=== PATIENT | female | born 1945 | race Caucasian/White ===

== ENCOUNTER 2018-12-08 18:05 | Inpatient (IN) | payer MEDICARE, OTHER ==
[~2018-12-08] VITALS: Ht 160 cm; Wt 63.6 kg
[2018-12-08] MEDS ORDERED: OMEPRAZOLE20 MG (18:19)
[2018-12-08] MEDS ORDERED: Prinivil10 MG PO (18:19)
[2018-12-08] MEDS ORDERED: LEVSOD100 PO (18:19)
[2018-12-08] MEDS ORDERED: SERT50 PO (18:19)
[2018-12-08] MEDS ORDERED: METO25ER PO (18:20)
[2018-12-08] MEDS ORDERED: ASPI81CH PO (18:20)
[2018-12-08] MEDS ORDERED: PROBIOTIC1 EAC1 PO (18:20)
[2018-12-08] MEDS ORDERED: METF500 PO (18:20)
[2018-12-08] MEDS ORDERED: MYNEPHRON CAPSUL1 MG PO (18:20)
[2018-12-08] MEDS ORDERED: PRED5 PO (18:20)
[2018-12-08] MEDS ORDERED: ATOR40TA PO (18:21)
[2018-12-08] MEDS ORDERED: MAGNESIUM OXID500 MG PO (18:21)
[2018-12-08] MEDS ORDERED: Vitamin D400 UNI1 PO (18:21)
[2018-12-08] MEDS ORDERED: Ventolin/Prove6.7 GM INH (18:22)
[2018-12-08] MEDS ORDERED: Brovana15 MCG/2 M (18:22)
[2018-12-08] MEDS ORDERED: Abreva2 GM (18:22)
[2018-12-08 19:15] LABS: Chloride (POC) 95 mmol/L (98-108); Creatinine (POC) 0.6 mg/dL (0.6-1.0); Glucose (ISTAT POC) 183 mg/dL (70-99); Hemoglobin (POC) 13.9 g/dL (12.0-16.0); Potassium (POC) 3.8 mmol/L (3.5-5.5); Sodium (POC) 134 mmol/L (135-148); Total CO2 (POC) 29 mmol/L (21-32)
[2018-12-08 20:24] LABS: BASOPHILS ABSOLUTE AUTO 0.13 K/mm3 (0.00-0.23); BASOPHILS PERCENT AUTO 1 % (0-2); EOSINOPHILS ABSOLUTE AUTO 0.13 K/mm3 (0.00-0.68); EOSINOPHILS PERCENT AUTO 1 % (0-6); Hematocrit 44.5 % (33.0-51.0); Hemoglobin 14.2 g/dL (11.5-16.0); IMMATURE GRAN ABSOLUTE AUTO 0.48 K/mm3 (0.00-0.10); IMMATURE GRAN PERCENT AUTO 2 % (0-1); LYMPHOCYTES ABSOLUTE AUTO 2.43 K/mm3 (0.84-5.20); LYMPHOCYTES PERCENT AUTO 11 % (21-46); MONOCYTES ABSOLUTE AUTO 1.49 K/mm3 (0.16-1.47); MONOCYTES PERCENT AUTO 7 % (4-13); Mean Corpuscular HGB 31.4 pg (26.0-34.0); Mean Corpuscular HGB Conc 31.9 g/dL (31.5-36.5); Mean Corpuscular Volume 99 fL (80-100); NEUTROPHILS ABSOLUTE AUTO 18.06 K/mm3 (1.96-9.15); NEUTROPHILS PERCENT AUTO 79 % (41-73); Platelet Count 390 K/mm3 (150-400); RDW Coefficient Variation 12.5 % (11.7-14.2); RDW Standard Deviation 45.6 fL (35.1-46.3); Red Blood Cell Count 4.52 M/mm3 (3.80-5.20); White Blood Cell Count 22.72 K/mm3 (4.00-11.30)
[2018-12-08 20:46] LABS: Alanine Aminotransfer (ALT/SGP 32 U/L (12-78); Albumin, Blood 3.6 g/dL (3.4-5.0); Alk Phos 105 U/L (50-136); Anion Gap 7 mmol/L (6-16); Aspartate Aminotrans (AST/SGOT 26 U/L (12-37); Bilirubin, Total 0.2 mg/dL (0.1-1.0); Blood Urea Nitrogen 11 mg/dL (8-24); Bun/Creatinine Ratio 23.7 (12.0-20.0); CO2, Blood 28 mmol/L (21-32); Calcium, Blood 8.6 mg/dL (8.5-10.1); Chloride, Blood 103 mmol/L (98-108); Creatinine, Blood 0.47 mg/dL (0.40-1.00); Globulin, Blood 3.5 g/dL (2.2-4.0); Glomerular Filtration Rate >60 (60-); Glucose, Blood 145 mg/dL (70-99); Potassium, Blood 4.3 mmol/L (3.5-5.5); Sodium, Blood 138 mmol/L (136-145); Total Protein, Blood 7.1 g/dL (6.4-8.2)
[2018-12-08] MEDS ORDERED: BUDE.25 NEB (21:23)
[2018-12-08] MEDS ORDERED: ROFL500T PO ×2 (21:24→23:04)
[2018-12-08 22:51] LABS: International Normalized Ratio 0.98; Prothrombin Time Results 10.4 Sec (9.7-11.5)
[2018-12-08] MEDS ORDERED: COMBIVENT RESPIM4 GM INH (23:02)
[2018-12-08] MEDS ORDERED: CITRATE OF MAG296 ML (23:03)
--- NOTE | 2018-12-09 01:00 | NUR ---
PT TO ICU 4 FROM ED. PT ALERT AND ORIENTED ARRIVING TO UNIT ON BIPAP (10/5 35%). PT DENIES CHEST PAIN OR DIFFICULTY BREATHING AT THIS TIME. EXPIRATORY WHEEZES HEARD BILATERAL UPPER LOBES, DIM BASES. PT NSR WITH HR IN THE 60'S-70'S. PT'S CURRENTLY RCVING LITER 2 OF 2 NS BOLUS D/T CONTINUED HYPOTENSION WITH MAP IN THE LOW 60'S. WILL CONTINUE TO MONITOR. HYPERACTIVE BT'S HEARD T/O, PT REPORTS STOMACH FEELS "UPSET" AND "A LITTLE TENDER" WITH PALPATION. NO C/O N/T, GOOD PULSES FELT BUE/BLE. COMPRESSION STOCKINGS APPLIED PER ORDER. GONZALEZ CATHETER INSERTED AND URINE SENT TO LAB PER PHYSICIAN ORDER. CHRIS POWERGLIDE INSERTED D/T CONTINUED "BLOWN" IV'S. SEE FULL ADMISSION HISTORY/ASSESSMENT.
[2018-12-09 01:10] LABS: Source, Urine Catheter
[2018-12-09 01:14] LABS: Appearance, Urine Cloudy (Clear); Bilirubin, Urine Neg (Neg); Blood, Urine 3+ (Neg); Color, Urine Yellow (P-Yellow); Glucose Qualitative, Urine Neg (Neg); Ketones, Urine 1+ (Neg); Leukocyte Esterase, Urine 2+ (Neg); Nitrite, Urine Pos (Neg); Protein, Urine 3+ (Neg); Specific Gravity, Urine 1.025 (1.003-1.022); Urobilinogen, Urine NORM (Normal)
[2018-12-09 01:20] LABS: Bacteria Many /hpf; Hyaline Casts 0-2 /lpf (0-2); Red Blood Cells, Urine 0-2 /hpf (0-2); Squamous Epithelial Cells Mod /hpf (Few)
[2018-12-09] MEDS ORDERED: PYRI100 PO (01:29)
[2018-12-09] MEDS ORDERED: BENZ100A PO (01:29)
[2018-12-09] MEDS ORDERED: CYCL10 PO (01:30)
[2018-12-09] MEDS ORDERED: FURO20 PO (01:31)
[2018-12-09] MEDS ORDERED: ONDA4ODT MM (01:34)
[2018-12-09] MEDS ORDERED: OMEP20ER PO (01:34)
--- NOTE | 2018-12-09 02:20 | NUR ---
CALL TO HOSPITALIST REGARDING PT'S CONTINUED HYPOTENSION, ORDER TO INFUSE ADDITIONAL 500 ML FLUID BOLUS.
[2018-12-09 04:05] LABS: BASOPHILS ABSOLUTE AUTO 0.05 K/mm3 (0.00-0.23); BASOPHILS PERCENT AUTO 0 % (0-2); EOSINOPHILS ABSOLUTE AUTO 0.03 K/mm3 (0.00-0.68); EOSINOPHILS PERCENT AUTO 0 % (0-6); Hematocrit 39.6 % (33.0-51.0); Hemoglobin 12.4 g/dL (11.5-16.0); IMMATURE GRAN ABSOLUTE AUTO 0.37 K/mm3 (0.00-0.10); IMMATURE GRAN PERCENT AUTO 2 % (0-1); LYMPHOCYTES PERCENT AUTO 6 % (21-46); MONOCYTES ABSOLUTE AUTO 0.72 K/mm3 (0.16-1.47); MONOCYTES PERCENT AUTO 4 % (4-13); Mean Corpuscular HGB 31.2 pg (26.0-34.0); Mean Corpuscular HGB Conc 31.3 g/dL (31.5-36.5); Mean Corpuscular Volume 100 fL (80-100); Mean Platelet Volume 10.2 fL (9.1-12.4); NEUTROPHILS ABSOLUTE AUTO 16.39 K/mm3 (1.96-9.15); NEUTROPHILS PERCENT AUTO 87 % (41-73); Platelet Count 281 K/mm3 (150-400); RDW Coefficient Variation 12.6 % (11.7-14.2); RDW Standard Deviation 46.5 fL (35.1-46.3); Red Blood Cell Count 3.97 M/mm3 (3.80-5.20); White Blood Cell Count 18.76 K/mm3 (4.00-11.30)
[2018-12-09 04:31] LABS: Alanine Aminotransfer (ALT/SGP 40 U/L (12-78); Albumin, Blood 3.1 g/dL (3.4-5.0); Alk Phos 72 U/L (50-136); Anion Gap 6 mmol/L (6-16); Aspartate Aminotrans (AST/SGOT 33 U/L (12-37); Bilirubin, Total 0.3 mg/dL (0.1-1.0); Blood Urea Nitrogen 10 mg/dL (8-24); Bun/Creatinine Ratio 16.9 (12.0-20.0); CHOL/HDL RATIO 1.9; CO2, Blood 28 mmol/L (21-32); CPK Creatine Kinase 149 U/L (26-193); Calcium, Blood 7.8 mg/dL (8.5-10.1); Chloride, Blood 103 mmol/L (98-108); Cholesterol 124 mg/dL (50-200); Creatinine, Blood 0.59 mg/dL (0.40-1.00); Globulin, Blood 3.1 g/dL (2.2-4.0); Glomerular Filtration Rate >60 (60-); Glucose, Blood 136 mg/dL (70-99); HDL Cholesterol 66 mg/dL (>39); LDL/HDL RATIO 0.7; Low Density Lipoprotein Chol 49 mg/dL (0-110); Potassium, Blood 4.6 mmol/L (3.5-5.5); Sodium, Blood 137 mmol/L (136-145); Total Protein, Blood 6.2 g/dL (6.4-8.2); Triglycerides 43 mg/dL (30-160); Very Low Density Lipoprot Chol 8 mg/dL (6-32)
[2018-12-09 05:25] LABS: PCO2 Arterial 52.2 mmHg (35-45); pH Blood Arterial 7.31 (7.35-7.45)
--- NOTE | 2018-12-09 05:47 | NUR ---
SHIFT SUMMARY NO ACUTE CHANGES SINCE ADMISSION. PT SLEEPING WELL, DENIES NEW/WORSENING PAIN OR NEEDS AT THIS TIME. PT RESPONDED TO FLUID BOLUS MOSTLY MAINTAINING MAP>65 WITH OCCASIONAL HYPOTENSION. BIPAP SETTINGS 10/5 FIO2 35% SATS>95. 600 ML CLEAR INEZ URINE OUT OF CATHETER. WILL REPORT TO DAYSHIFT NURSE.
--- NOTE | 2018-12-09 07:54 | NUR ---
echocardiogram completed.
--- NOTE | 2018-12-09 08:33 | NUR ---
ASSUMED CARE / HEART CENTER: REPORT RECEIVED FROM WESTON Gonzalez RN. ASSUMED CARE OF THIS PT AT APPROX 0700. ON ASSESSMENT, THE PT IS RESTING QUIETLY. MARKETING FINANCIAL ANALYST AT BEDSIDE COMPLETING STUDY. BIPAP IN PLACE, SETTINGS 10/5 & 30% FIO2. MONITOR SHOWS NSR W/ HR 60s. SLIGHT HYPOTENSION NOTED W/ SBP 90-100s. PT ASYMPTOMATIC. ECHO COMPLETED & DR CLINE TO READ. PLANS FOR ANGIOGRAM THIS AM. HEART CENTER STAFF AT BEDSIDE TO PREP PT. HEPARIN DRIP & MAINTENANCE IVF PLACED ON STANDBY, PHARMACY AWARE. PT TAKEN TO HC AT APPROX 0840. WILL AWAIT UPDATES & PT RETURN TO ROOM.
--- NOTE | 2018-12-09 11:04 | NUR ---
RETURN FROM HC: PT ARRIVED BACK TO ROOM AT APPROX 1100. ON ARRIVAL, SHE IS A&O, CONVERSING W/ NURSING STAFF. TR BAND TO R WRIST PLACED AT 1039 W/ 12 CC AIR, PER HC RN. SITE WNL ON ASSESSMENT, AREA FREE OF BLEEDING, BRUISING OR HEMATOMA FORMATION ON ASSESSMENT. SENSATION TO FINGERS ON AFFECTED LIMB INTACT, PT DENIES N/T. CAP REFILL < 3 SECONDS. O2 SATS > 92% ON 5L NC, WILL TITRATE DOWN TOLERATED. PT RECEIVED ONE STENT TO FIRST DIAG.
--- NOTE | 2018-12-09 12:19 | NUR ---
UPDATE: NOTIFIED BY ZOLTAN Frazier, PCT, THAT PT HAS BEGUN TO FEEL NAUSEOUS, FLUSHED & SOB SHORTLY AFTER ATTEMPTING TO EAT SOME TOAST & DRINK DECAF COFFEE. NOAH Stubbs, EXTENSION SPECIALIST, RESPONDS TO BEDSIDE THIS RN WAS UNAVAILABLE. MEDS PER EMAR FOR NAUSEA, BIPAP TO BE USED ONCE NAUSEA HAS RESOLVED. PT's O2 SATS REMAIN > 92% ON 5L NC. R RADIAL ACCESS SITE REMAINS STABLE, WNL. TR BAND REMAINS INFLATED TO 12 CC AIR. PT REPORTS SLIGHT IMPROVEMENT R/T NAUSEA & FLUSHED FEELING. WILL CONTINUE TO MONITOR & UPDATE NEEDED.
--- NOTE | 2018-12-09 16:14 | NUR ---
Spiritual Care intial note: Mrs. Narvaez appears rather weak, but she had just returned from [place]. She welcomed prayer and spiritual encouragement. She feels well-loved and supported by family and expresess gratitude for compassionate care by nursing and physicians. No concerns presented. No family present at time of visit. Conversation kept short to allow pt to rest. I will remain available to pt and family.
--- NOTE | 2018-12-09 18:32 | NUR ---
SHIFT SUMMARY: NO ACUTE CHANGES SINCE PRIOR UPDATES. PT HAS RESTED WELL INTERMITTENTLY THIS AFTERNOON. SHE CONTINUES TO DENY CP, R RADIAL SITE WNL, TR BAND REMOVED & TEGADERM HAS BEEN PLACED OVER SITE. PT's POWERGLIDE APPEARS TO HAVE INFILTRATED INTO FOREARM TISSUE, ALTHOUGH THE SITE CONTINUES TO DRAW BACK BLOOD WELL. INFILTRATED AREA TO UPPER FOREARM HAS DECREASED IN SIZE SINCE DISCONTINUING INFUSION TO POWERGLIDE. LINE LEFT IN PLACE TO USE FOR BLOOD DRAWS PRN. PT CURRENTLY ON 4L NC W/ O2 SATS > 92%. LS ARE DIM IN BASES, OCCASIONAL WHEEZING NOTED. MONITOR SHOWS NSR W/ HR 60-80s, HYPOTENSION PERSISTS W/ SBP 90-110s. PT HAS HAD NO FURTHER NAUSEA & IS TOLERATING PO INTAKE WELL. GONZALEZ PATENT/DRAINING CLEAR, YELLOW URINE. SKIN OVERALL CDI. WILL CONTINUE TO MONITOR & REPORT OFF TO ONCOMING RN.
--- NOTE | 2018-12-09 20:00 | NUR ---
ASSUMED CARE OF PT, REPORT RCV'D FROM CIRA HATFIELD. PT PLEASANT, ALERT AND ORIENTED. BAG 1 OF 2 NS @100 ML/HR INFUSING IN TO LFA. RFA EDEMETOUS D/T POWERGLIDE INFILTRATION. PER DAYSHIFT NURSE AND PT, SWELLING HAS IMPROVED SINCE PG INFUSION STOPPED. RIGHT RADIAL ACCESS SITE SOFT, NON-TENDER WITH SLIGHT UNCHANGED OOZE. WINDOW DRESSING AND ARMBOARD IN PLACE. PT CURRENTLY ON 4L NC WITH SATS>94. PERIODS OF ASYMTOMATIC HYPOTENSION, WILL CONTINUE TO MONITOR AND INTERVENE NECESSARY. GONZALEZ PATENT AND DRAINING CLEAR YELLOW URINE. SEE FULL SHIFT ASSESSMENT.
[2018-12-10 05:31] LABS: Hematocrit 33.4 % (33.0-51.0); Hemoglobin 10.8 g/dL (11.5-16.0); Mean Corpuscular HGB 31.7 pg (26.0-34.0); Mean Corpuscular HGB Conc 32.3 g/dL (31.5-36.5); Mean Corpuscular Volume 98 fL (80-100); Mean Platelet Volume 11.2 fL (9.1-12.4); Platelet Count 318 K/mm3 (150-400); RDW Coefficient Variation 13.5 % (11.7-14.2); RDW Standard Deviation 46.6 fL (35.1-46.3); Red Blood Cell Count 3.41 M/mm3 (3.80-5.20); White Blood Cell Count 20.99 K/mm3 (4.00-11.30)
[2018-12-10 06:18] LABS: Anion Gap 7 mmol/L (6-16); Blood Urea Nitrogen 10 mg/dL (8-24); Bun/Creatinine Ratio 20.4 (12.0-20.0); CO2, Blood 26 mmol/L (21-32); Chloride, Blood 109 mmol/L (98-108); Creatinine, Blood 0.49 mg/dL (0.40-1.00); Glomerular Filtration Rate >60 (60-); Glucose, Blood 170 mg/dL (70-99); Potassium, Blood 3.9 mmol/L (3.5-5.5); Sodium, Blood 142 mmol/L (136-145)
--- NOTE | 2018-12-10 06:30 | NUR ---
SHIFT SUMMARY: DR MACEDO IN TO SEE PT ORDERS GIVEN DISCUSS PROGRESS . MONITOR INTACT SHOWING SINUS RHYTHM HEART RATE 70'S-80'S DENIES DISCOMFORT. LUNGS WITH COARSE SOUNDS HAS BEEN ON CPAP / WITH 30%FIO2 EXCEPT FOR BREAK BETWEEN 0200TO 0330. SECONDARY TO DECREASING SPO2. ABDOMEN SOFT WITH BOWEL SOUNDS FOUR QUADS. GONZALEZ PATENT DRAINING INEZ URINE. TR BAND SITE CLEAR WITH NO TENDERNESS BRUISING. AND GOOD PULSE ARM BOARD IN PLACE. GENERALIZED DEPENDENT EDEMA NOTED TO R FOREARM ABOVE TR BAND SITE HOWEVER BELOW POWER GLIDE SITE. LYNCH WELL IN BED CONTINIUE TO MONITOR AND REPORT CHANGE IN PATIENT CONDITION
--- NOTE | 2018-12-10 07:15 | NUR ---
START OF SHIFT NOTE: RECEIVED REPORT FROM CIRA JESUS, ASSUMED CARE, PATIENT IS AWAKE, ALERT AND ORIENTED, ASKING TO SIT UP IN CHAIR FOR BREAKFAST, LUNG SOUNDS ARE DIMINISHED, SOME CRACKLES NOTED IN BASES, ARMBOARD IN PLACE ON RIGHT WRIST, ACCESS SITE COVERED WITH OPSITE, NO BLEEDING, NO HEMATOMA, NONTENDER ON PALPATION, PATIENT REMINDED TO TREAT RIGHT WRIST IF IT WERE BROKEN AND NOT TO PUSH, PULL, BEND, LIFT, KEEP ARMBOARD IN PLACE FOR ONE WEEK, PATIENT HAS HYPERACTIVE BOWEL TONES, GONZALEZ CATHETER IN PLACE, PULSES ARE PALPABLE, CALL LIGHT IN REACH, WILL CONTINUE TO MONITOR.
--- NOTE | 2018-12-10 07:51 | NUR ---
DR. MCCORMICK IN TO SEE PATIENT, NEW ORDERS RECEIVED.
--- NOTE | 2018-12-10 08:15 | NUR ---
PATIENT UP IN CHAIR TO EAT BREAKFAST, GOOD APPETITE, PLEASANT AND COOPERATIVE, TAKES AM MEDICATION ONE AT A TIME, NO PROBLEM SWALLOWING, CALL LIGHT IN REACH, WILL CONTINUE TO MONITOR.
--- NOTE | 2018-12-10 09:29 | NUR ---
CIRA KEITA, CARE MANAGEMENT IN TO SEE PATIENT.
--- NOTE | 2018-12-10 13:14 | NUR ---
GONZALEZ CATHETER WAS DISCONTINUED ORDERED, ALSO PIV DRESSING ON LEFT WRIST WAS CHANGED, PATIENT TOLERATED WELL, PIV FLUSHES WITHOUT ANY PROBLEMS, RIGHT ARM ELEVATED D/T EDEMA ON INNER ASPECT OF AC, ARMBOARD REPOSITIONED, POWERGLIDE IN CHRIS FLUSHES WELL AND DRAWS BACK WITHOUT ANY PROBLEMS, PATIENT TOLERATED WELL AND VERY PLEASANT AND COOPERATIVE, CONTINUES UP IN CHAIR, RT IN TO GIVE BREATHING TREATMENT, CALL LIGHT IN REACH, WILL CONTINUE TO MONITOR.
--- NOTE | 2018-12-10 14:08 | NUR ---
PATIENT RESTING COMFORTABLY, CONTINUES UP IN CHAIR WITH LEGS ELEVATED, ATTENDS FOR INCONTINENCE, CALL LIGHT IN REACH, WILL CONTINUE TO MONITOR.
--- NOTE | 2018-12-10 17:03 | NUR ---
PATIENT CONTINUES UP IN CHAIR, VISITING WITH FAMILY MEMBERS, DENIES PAIN, AFEBRILE, NO NEEDS AT THIS TIME, CALL LIGHT IN REACH, WILL CONTINUE TO MONITOR.
--- NOTE | 2018-12-10 17:39 | NUR ---
PER DR. MCCORMICK, PATIENT IS NOW PCU STATUS WITH TELE.
--- NOTE | 2018-12-10 17:42 | NUR ---
SHIFT SUMMARY NOTE: NO ACUTE EVENTS DURING THIS SHIFT, PATIENT UP IN CHAIR SINCE THIS AM, FAMILY AT BEDSIDE, PATIENT HAS GOOD APPETITE AND EATS WELL, GONZALEZ CATHETER REMOVED, ATTENDS IN PLACE D/T SOME URGENCY AND INCONTINENCE, VSS, AFEBRILE, DENIES PAIN, LUNG SOUNDS CLEAR BUT DIMINISHED, PATIENT NOW ON 3L NC, O2 SATS AT 95 %, POWERGLIDE IN CHRIS, FLUSHES WELL AND GOOD BLOOD RETURN, SLIGHT EDEMA ON MEDIAL SIDE OF RUE, ELEVATED ON PILLOW, EDEMA RESOLVING, PATIENT NOW ON ORAL PREDNISONE AND CHEMSTICKS AC/HS ARE SLIGHTLY HIGHER THAN THIS MORNING, PATIENT ON HEPARING AND HAS KNEE HIGH JACOBO'S HOSE IN PLACE, FOR DETAILS SEE SHIFT ASSESSMENT DOCUMENTATION AND NURSES NOTES, CALL LIGHT IN REACH, WILL CONTINUE TO MONITOR AND GIVE REPORT TO ONCOMING NOC SHIFT.
--- NOTE | 2018-12-10 18:10 | NUR ---
PATIENT BACK TO BED, ATTENDS IN PLACE, NO INCONTINENCE NOTED, REPOSITIONED AND BOOSTED UP, FAMILY AT BEDSIDE, CALL LIGHT IN REACH, WILL CONTINUE TO MONITOR.
--- NOTE | 2018-12-10 18:30 | NUR ---
DR. CLINE IN TO SPEAK WITH PATIENT AND FAMILY.
--- NOTE | 2018-12-10 19:00 | NUR ---
ASSUME CARE: REPORT RECIEVED FROM OFF GOING RN JAZ. MONITIOR INTACT SHOWING SINUS RHYTHM. HEART RATE 80'S. DENIES DISCOMFORT VISISTS WITH FAMILY IN ROOM INFORMED OF PENDING TRANSFER TO PCU 8. ANTICIPATES TRANSFER. RESPIRATIONS REGULAR AND EASY WITH SPO2 94-97% WITH O2 IN PLACE AT 3L/MIN PER NASAL CANNULA. LYNCH WELL IN BED. CONTINUE TO MONITOR AND REPORT CHANGES IN PATIENT CONDITION.
--- NOTE | 2018-12-10 19:15 | NUR ---
REPORT CALLED TO ANTHONY DENIS FOR PENDING TRANSFER
--- NOTE | 2018-12-10 19:30 | NUR ---
TRANSFER TO PCU 8 PER WHEEL CHAIR WITH O2. TOLERATES WELL
--- NOTE | 2018-12-10 20:00 | NUR ---
CARE ASSUMPTION / PCU ARRIVAL PT BROUGHT TO PCU RM 08 FROM ICU BY WHEELCHAIR @ APPROX 1930. PT A&O X4. PT ABLE TO STAND AND AMBULATE TO PCU BED W/ SBA. PT USING FWW FOR LONGER DISTANCES TO AMBULATE. R RADIAL ACCESS SITE WNL, NO BLEEDING, NO HEMATOMA. SITE DRESSED W/ OPSITE DRESSING & ARM BOARD IN PLACE. PT DENIES PAIN/DISCOMFORT OF ANY KIND. VSS. SPO2 > 92% ON 2L NC. PT REPORTS 2-4 L NC AT HOME BASELINE. BIPAP AT BEDSIDE. REPORT FROM PT AND RT THAT BIPAP BEING USED FOR PT COMFORT / PRN RESCUE. PT'S R FOREARM NOTED TO BE EDEMATOUS. RFA ELEVATED ON PILLOW. WILL CONTINUE TO MONITOR AND PROVIDE CARE.
[2018-12-11 04:17] LABS: Anion Gap 6 mmol/L (6-16); Blood Urea Nitrogen 10 mg/dL (8-24); Bun/Creatinine Ratio 20.3 (12.0-20.0); CO2, Blood 30 mmol/L (21-32); Calcium, Blood 8.5 mg/dL (8.5-10.1); Chloride, Blood 105 mmol/L (98-108); Creatinine, Blood 0.49 mg/dL (0.40-1.00); Glomerular Filtration Rate >60 (60-); Glucose, Blood 132 mg/dL (70-99); Magnesium, Blood 1.6 mg/dL (1.6-2.4); Potassium, Blood 3.3 mmol/L (3.5-5.5); Sodium, Blood 141 mmol/L (136-145)
--- NOTE | 2018-12-11 05:01 | NUR ---
SHIFT SUMMARY PT A&O X4. VSS. PT TOLERATING 2L NC T/O SHIFT, BIPAP NOT NEEDED. MONITOR SHOWS NSR, HR 60-90. R RADIAL ACCESS SITE WNL, ARM BOARD IN PLACE. R UPPER ARM CONTINUES TO BE EDEMATOUS, R ARM ELEVATED ON PILLOW T/O SHIFT WHILE PT IN BED. CALL TO MD BARRAZA TO REPORT K LEVEL 3.3 W/ ORDERS FOR PO POTASSIUM TO BE GIVEN X1, SEE EMAR. WILL CONTINUE TO MONITOR AND PROVIDE CARE UNTIL REPORT OFF TO DAY SHIFT RN.
--- NOTE | 2018-12-11 08:37 | NUR ---
AM NOTE. ASSUMED CARE OF PT APROX 0700, PT SI A&Ox4 AND SBA W/FWW IN THE ROOM. PT WAS ADMITTED FOR RESP FAILURE AND NSTEMI W/STENT PLACEMENT. PT DENIES ANY CHEST PAIN/PRESSURE AT THIS TIME. PT'S RIGHT RADIAL SITE IS C/D/I WITH NO HEMATOMA NOTED. PT IS IN NSR IN THE 70'S-90'S, L/S CLEAR IN THE UPPER LOBES, DIM IN THE MID TO LOWER LOBES WITH CRACKLES NOTED TO THE RIGHT MID AND LOWER LOBES. PT IS ON 2 L NC WITH O2 SATS >90%, PT'S HOME DOSE IS 2-4 LNC. PT HAS NOT HAD A BM SINCE THE AND PT REFUSES ANY BOWEL CARE, PT STATES THAT "I WILL GO ON MY OWN HERE BEFORE LONG." WILL CONTINUE TO MONITOR.
--- NOTE | 2018-12-11 11:49 | NUR ---
Pt. in bed and talking with family members in the room on visit offered prayer and support.
--- NOTE | 2018-12-11 18:41 | NUR ---
SHIFT SUMMARY. NO ACUTE CHANGES NOTED THIS SHIFT. PT DENIES ANY CHEST PAIN/PRESSURE, N/V OR ABNORMAL SOB. PT HAS BEEN WALKING TO THE BATHROOM W/FWW IND WITH FAMILY IN THE ROOM. PT HAS HAD FAMILY AT THE BEDSIDE MOST OF THE SHIFT. PT'S VS STABLE T/O SHIFT. R RADIAL SITE IS C/D/I WITH NO HEMATOMA. CALL LIGHT IN REACH, BED IS LOCKED AND LOW WILL CONTINUE TO MONITOR UNTIL REPROT IS GIVEN TO ONCOMING RN.
--- NOTE | 2018-12-12 03:13 | NUR ---
ASSUMED CARE APPROXIMATELY 1930 FROM CIRA LOERA; PT IS PLEASANT AND COMPLIANT W/CARE; FAMILY AT BEDSIDE; PT AMBULATES TO BATHROOM W/ FWW W/ FAMILY SBA; R ARM BOARD IN PLACE A REMINDER; V/S STABLE; PT ON 2 L NC; PT DENIES PAIN; PT SLEPT AND RESTED COMFORTABLY IN BETWEEN; CALL LIGHT W/IN REACH; BED IN LOWEST POSITION; WILL CONTINUE TO MONITOR AND ASSESS UNTIL HANDOFF TO DAY SHIFT RN.
[2018-12-12 05:15] LABS: BASOPHILS ABSOLUTE AUTO 0.06 K/mm3 (0.00-0.23); BASOPHILS PERCENT AUTO 0 % (0-2); EOSINOPHILS ABSOLUTE AUTO 0.07 K/mm3 (0.00-0.68); EOSINOPHILS PERCENT AUTO 0 % (0-6); Hematocrit 35.4 % (33.0-51.0); Hemoglobin 11.6 g/dL (11.5-16.0); IMMATURE GRAN ABSOLUTE AUTO 0.51 K/mm3 (0.00-0.10); IMMATURE GRAN PERCENT AUTO 3 % (0-1); LYMPHOCYTES ABSOLUTE AUTO 3.59 K/mm3 (0.84-5.20); LYMPHOCYTES PERCENT AUTO 18 % (21-46); MONOCYTES ABSOLUTE AUTO 1.79 K/mm3 (0.16-1.47); MONOCYTES PERCENT AUTO 9 % (4-13); Mean Corpuscular HGB 31.3 pg (26.0-34.0); Mean Corpuscular HGB Conc 32.8 g/dL (31.5-36.5); Mean Platelet Volume 10.3 fL (9.1-12.4); NEUTROPHILS ABSOLUTE AUTO 13.66 K/mm3 (1.96-9.15); NEUTROPHILS PERCENT AUTO 69 % (41-73); Platelet Count 251 K/mm3 (150-400); RDW Coefficient Variation 13.1 % (11.7-14.2); RDW Standard Deviation 46.2 fL (35.1-46.3); Red Blood Cell Count 3.71 M/mm3 (3.80-5.20); White Blood Cell Count 19.68 K/mm3 (4.00-11.30)
[2018-12-12 05:17] LABS: Mean Corpuscular Volume 95 fL (80-100)
[2018-12-12 05:39] LABS: Anion Gap 5 mmol/L (6-16); Blood Urea Nitrogen 12 mg/dL (8-24); Bun/Creatinine Ratio 24.5 (12.0-20.0); CO2, Blood 33 mmol/L (21-32); Calcium, Blood 8.6 mg/dL (8.5-10.1); Chloride, Blood 103 mmol/L (98-108); Creatinine, Blood 0.49 mg/dL (0.40-1.00); Glomerular Filtration Rate >60 (60-); Glucose, Blood 133 mg/dL (70-99); Magnesium, Blood 1.8 mg/dL (1.6-2.4); Sodium, Blood 141 mmol/L (136-145)
--- NOTE | 2018-12-12 08:53 | NUR ---
AM NOTE. ASSUMED CARE OF PT APROX 0700. PT IS A&Ox4 AND IND/SBA IN THE ROOM W/FWW. PT WAS ADMITTED FOR RESP FAILURE/NSTEMI. PT IS S/P ANGIO W/STENT PLACEMENT. PT DENIES ANY CHEST PAIN/PRESSURE, N/V/D OR INCREASED SOB. PT IS STABLE ON 2L NC WITH O2 SATS >92%. PT IS TO D/C HOME TODAY. L/S CLEAR T/O DIM IN THE BASES. TRACE EDEMA IS NOTED IN THE PT'S TI, THIS HAS IMPROVED FROM YESTERDAY. BT PRESENT AND NORMOACTIVE. ABD IS SOFT AND NONTENDER TO PALP. CALL LIGHT IN REACH, BED IS LOCKED AND LOW WILL CONTINUE TO MONITOR.
[2018-12-12] MEDS ORDERED: CLOP75 PO (11:36)
[2018-12-12] MEDS ORDERED: NITR.4SL SL (11:40)
[2018-12-12] MEDS ORDERED: ONDA4ODT MM (11:42)
[2018-12-12] MEDS ORDERED: Prednisone10 MG PO (11:44)
[2018-12-12] MEDS ORDERED: ENTRESTO 24 MG1 EACH PO (11:47)
--- NOTE | 2018-12-12 11:53 | NUR ---
Pt. is sitting up on her bed and taliking with family members in the room on visit. Pt. is doing well and will be going home today offered prayers and spititual support .
== END 2018-12-12 13:07 | disposition home or self-care (01) | DRG 246 ==
LOC: ER 18:05 → PCU 23:50 → ICUE 23:50 → ICUW 23:50 → ICUE 23:51 → PCU 12-10 19:35
PROVIDERS: Emergency Medicine; Internal Medicine; Internal Medicine Cardiovascular Disease; ADMIT Internal Medicine
PROC: 4A023N7 Measurement of Cardiac Sampling and Pressure, Left Heart, Percutaneous Approach (ICD-10-PCS; principal; 2018-12-09)
PROC: 027034Z Dilation of Coronary Artery, One Artery with Drug-eluting Intraluminal Device, Percutaneous Approach (ICD-10-PCS; 2018-12-09)
PROC: 02713ZZ Dilation of Coronary Artery, Two Arteries, Percutaneous Approach (ICD-10-PCS; 2018-12-09)
PROC: B211YZZ Fluoroscopy of Multiple Coronary Arteries using Other Contrast (ICD-10-PCS; 2018-12-09)
DX: I21.3 ST elevation (STEMI) myocardial infarction of unspecified site (principal); I50.43 Acute on chronic combined systolic (congestive) and diastolic (congestive) heart failure; J96.22 Acute and chronic respiratory failure with hypercapnia; J96.21 Acute and chronic respiratory failure with hypoxia; J44.1 Chronic obstructive pulmonary disease with (acute) exacerbation; I11.0 Hypertensive heart disease with heart failure; E11.9 Type 2 diabetes mellitus without complications; E87.6 Hypokalemia; E03.9 Hypothyroidism, unspecified; I95.9 Hypotension, unspecified; Z95.5 Presence of coronary angioplasty implant and graft; I25.2 Old myocardial infarction; Z99.81 Dependence on supplemental oxygen; Z87.891 Personal history of nicotine dependence; Z79.82 Long term (current) use of aspirin; Z79.84 Long term (current) use of oral hypoglycemic drugs; I25.110 Atherosclerotic heart disease of native coronary artery with unstable angina pectoris; E78.5 Hyperlipidemia, unspecified; Z66 Do not resuscitate
CPT/HCPCS: 36415; 36600; 51702; 71045; 71260; 76937; 80047; 80048; 80053; 80061; 81001; 82550; 82803; 82947; 83735; 83880; 84443; 84484; 85014; 85025; 85027; 85049; 85347; 85610; 85730; 92921; 93005; 93010; 93306; 93454; 93571; 93572; 94640; 94660; 94760; 94762; 96360-59; 96361; 99152; 99153; 99285-25; A9270; C1725; C1751; C1769; C1874; C1887; C1894; C9113; C9600; C9601; J1644; J1940; J2250; J2405; J2930; J3010; J3475; J7030; J7040; J7512; Q9967

== ENCOUNTER 2020-05-03 08:03 | Emergency (ER) | payer MEDICARE, OTHER ==
[~2020-05-03] VITALS: Ht 157.5 cm; Wt 64.0 kg
[~2020-05-03 08:03] MED LIST: ACIDOPHILUS1 EAC3 PO; ASPI81CH PO; ATOR40TA PO; Abreva2 GM; BENZ100A PO; BUDE.25 NEB; Brovana15 MCG/2 M; CITRATE OF MAG296 ML; CLOP75 PO; COMBIVENT RESPIM4 GM INH; CYCL10 PO; ENTRESTO 24 MG1 EACH PO; FAMO20 PO; FURO20 PO; ISOSORBIDE MONO60 MG PO; Klor-Con 1010 MEQ PO; LEVSOD100 PO; MAGNESIUM OXID500 MG PO; METF500 PO; METO25ER PO; MYNEPHRON CAPSUL1 MG PO; NITR.4SL SL; OMEP20ER PO; OMEPRAZOLE20 MG; ONDA4ODT MM; Ondansetron Odt8 MG MM; PRED5 PO; PROBIOTIC1 EAC1 PO; PYRI100 PO; Prednisone10 MG PO; Prinivil10 MG PO; ROFL500T PO; SERT50 PO; Ventolin/Prove6.7 GM INH; Vitamin D400 UNI1 PO
[2020-05-03 09:51] LABS: BASOPHILS ABSOLUTE AUTO 0.06 K/mm3 (0.00-0.23); BASOPHILS PERCENT AUTO 0 % (0-2); EOSINOPHILS ABSOLUTE AUTO 0.03 K/mm3 (0.00-0.68); EOSINOPHILS PERCENT AUTO 0 % (0-6); Hematocrit 36.3 % (33.0-51.0); Hemoglobin 11.3 g/dL (11.5-16.0); IMMATURE GRAN ABSOLUTE AUTO 0.22 K/mm3 (0.00-0.10); IMMATURE GRAN PERCENT AUTO 1 % (0-1); LYMPHOCYTES ABSOLUTE AUTO 1.18 K/mm3 (0.84-5.20); LYMPHOCYTES PERCENT AUTO 8 % (21-46); MONOCYTES ABSOLUTE AUTO 2.06 K/mm3 (0.16-1.47); MONOCYTES PERCENT AUTO 13 % (4-13); Mean Corpuscular HGB 28.6 pg (26.0-34.0); Mean Corpuscular HGB Conc 31.1 g/dL (31.5-36.5); Mean Corpuscular Volume 92 fL (80-100); Mean Platelet Volume 9.3 fL (9.1-12.4); NEUTROPHILS ABSOLUTE AUTO 12.11 K/mm3 (1.96-9.15); NEUTROPHILS PERCENT AUTO 77 % (41-73); Platelet Count 398 K/mm3 (150-400); RDW Coefficient Variation 12.7 % (11.7-14.2); RDW Standard Deviation 42.9 fL (35.1-46.3); Red Blood Cell Count 3.95 M/mm3 (3.80-5.20); White Blood Cell Count 15.66 K/mm3 (4.00-11.30)
[2020-05-03 10:08] LABS: Alanine Aminotransfer (ALT/SGP 18 U/L (12-78); Albumin, Blood 3.4 g/dL (3.4-5.0); Albumin/Globulin Ratio 0.8 (0.8-1.8); Alk Phos 82 U/L (50-136); Anion Gap 2 mmol/L (6-16); Aspartate Aminotrans (AST/SGOT 18 U/L (12-37); Bilirubin, Total 0.3 mg/dL (0.1-1.0); Blood Urea Nitrogen 15 mg/dL (8-24); Bun/Creatinine Ratio 35.8 (12.0-20.0); CO2, Blood 33 mmol/L (21-32); Calcium, Blood 9.1 mg/dL (8.5-10.1); Chloride, Blood 98 mmol/L (98-108); Creatinine, Blood 0.42 mg/dL (0.40-1.00); Globulin, Blood 4.1 g/dL (2.2-4.0); Glomerular Filtration Rate >60 (60-); Glucose, Blood 129 mg/dL (70-99); Potassium, Blood 3.7 mmol/L (3.5-5.5); Sodium, Blood 133 mmol/L (136-145); Total Protein, Blood 7.5 g/dL (6.4-8.2); Troponin I <0.015 ng/mL (0.000-0.040)
[2020-05-03] MEDS ORDERED: BUDESONIDE NEB (10:08)
[2020-05-03] MEDS ORDERED: PRED5 PO (10:09)
[2020-05-03] MEDS ORDERED: IPRAT-ALBUT 0.5-3 ML NEB (10:13)
[2020-05-03] MEDS ORDERED: AMOCLA875 PO (11:46)
[2020-05-03] MEDS ORDERED: PRED20 PO (11:46)
[2020-05-03] MEDS ORDERED: AZIT250 PO (13:04)
== END 2020-05-03 13:11 | disposition home or self-care (01) ==
LOC: ER 08:03
PROVIDERS: Emergency Medicine
DX: J44.0 Chronic obstructive pulmonary disease with (acute) lower respiratory infection (principal); J18.9 Pneumonia, unspecified organism; J44.1 Chronic obstructive pulmonary disease with (acute) exacerbation; I25.10 Atherosclerotic heart disease of native coronary artery without angina pectoris; E11.9 Type 2 diabetes mellitus without complications; E78.5 Hyperlipidemia, unspecified; E03.9 Hypothyroidism, unspecified; I10 Essential (primary) hypertension; Z79.82 Long term (current) use of aspirin; Z79.02 Long term (current) use of antithrombotics/antiplatelets; Z79.52 Long term (current) use of systemic steroids; Z79.899 Other long term (current) drug therapy; Z95.5 Presence of coronary angioplasty implant and graft; Z88.2 Allergy status to sulfonamides; Z88.8 Allergy status to other drugs, medicaments and biological substances
CPT/HCPCS: 36415; 71045; 71046; 80053; 83880; 84484; 85025; 93005; 93010; 96374; 99285-25; J2930